=== PATIENT | male | born 1995 | race Hispanic/Latino ===

== ENCOUNTER 2017-05-02 12:23 | Emergency (ER) | payer SELFPAY ==
--- NOTE | 2017-05-02 14:05 | RAD ---
RIGHT WRIST THREE VIEWS: HISTORY: A 21-year-old male with right wrist pain following an injury, wrist slammed in door today. IMPRESSION: No fracture, dislocation, or other significant acute osseous abnormality. POS: [facility]
[2017-05-02] MEDS ORDERED: Ibuprofen 200 MG TAB ONE (14:31)
== END 2017-05-02 14:42 | disposition home or self-care (01) ==
LOC: ERS 12:23
DX: S60.211A Contusion of right wrist, initial encounter (principal); F31.9 Bipolar disorder, unspecified; W23.0XXA Caught, crushed, jammed, or pinched between moving objects, initial encounter

== ENCOUNTER 2018-07-03 13:57 | Emergency (ER) | payer OTHER, SELFPAY ==
[2018-07-03 15:04] LABS: #Basophils 0.1 thou/uL (0.0-0.2); #Eosinphils 0.2 thou/uL (0.0-0.7); #Lymphocytes 0.9 thou/uL (1.20-3.40); #Monocytes 0.8 thou/uL (0.11-0.59); %Basophils 0.8 % (0.0-1.0); %Lymphocytes 11.6 % (21.0-51.0); %Monocytes 10.2 % (0.0-10.0); %Neutrophils 74.4 % (42.0-75.0); Hemoglobin 15.7 g/dL (14.0-18.0); Mean Corpuscular HGB CONC 34.1 g/dL (32.0-36.0); Mean Corpuscular Hemoglobin 30.2 pg (27.0-31.0); Mean Corpuscular Volume 88.5 fL (78.0-98.0); Mean Platelet Volume 8.7 fL (7.4-10.4); Platelet Count 205 thou/uL (130-400); RBC Distribution Width 12.7 % (11.5-14.5); Red Blood Cell (RBC) Count 5.21 mill/uL (4.70-6.10)
[2018-07-03 15:22] LABS: ALT (SGPT) 33 U/L (8-55); AST (SGOT) 26 U/L (5-34); Alkaline Phosphatase 75 U/L (40-150); Anion Gap 15 mmol/L (10-20); BUN (Urea Nitrogen) 14 mg/dL (8.9-20.6); Calc. Creatinine Clearance 0 mL/min (70-130); Calcium 10.1 mg/dL (7.8-10.44); Carbon Dioxide 22 mmol/L (22-29); Chloride 105 mmol/L (98-107); Estimated GFR-MDRD Greater than 90; Globulin 3.4 g/dL (2.4-3.5); Glucose 82 mg/dL (70-105); Lipase 32 U/L (8-78); Potassium 3.7 mmol/L (3.5-5.1); Protein, Total 8.4 g/dL (6.0-8.3); Sodium 138 mmol/L (136-145)
[2018-07-03 17:31] LABS: Bilirubin Small (Negative); Blood, Urine Moderate (Negative); Clarity CLEAR (Clear); Glucose, Urine (Dipstick) Negative (Negative); Leukocyte Negative (Negative); Nitrite Negative (Negative); Protein, Urine (Dipstick) 30 mg/dL (Neg-Trace); Specific Gravity, Urine 1.041 (1.002-1.036)
[2018-07-03 17:33] LABS: Bacteria/HPF None Seen HPF (None Seen); Hyaline Casts/LPF 7-10 HYALINE CAST LPF (0-3 Hyaline); Pathc Cast-AUWi Flag 0.29 (0-2.49); Squamous Epithelial 0-3 HPF (0-3)
== END 2018-07-03 17:53 | disposition home or self-care (01) ==
LOC: ERS 13:57
DX: R10.32 Left lower quadrant pain (principal); R31.9 Hematuria, unspecified
CPT/HCPCS: 80053; 81003; 81015; 83690; 85025; 87086; 99284

== ENCOUNTER 2025-01-20 00:08 | Emergency (ER) | payer SELFPAY ==
[2025-01-20] MEDS ORDERED: Dexamethasone 10 MG/ML VIAL ONE (00:33)
[2025-01-20] MEDS ORDERED: Amoxicillin/Potassium Clav 875 MG TAB ONE ×2 (00:33→01:04)
== END 2025-01-20 00:31 | disposition home or self-care (01) ==
LOC: ERS 00:08
DX: K08.89 Other specified disorders of teeth and supporting structures (principal); K02.9 Dental caries, unspecified
CPT/HCPCS: 96372; 99282; J1100; J2270